=== PATIENT | female | born 1985 | race Caucasian/White ===

== ENCOUNTER 2017-07-27 09:11 | Emergency (ER) | payer OTHER ==
[~2017-07-27] VITALS: Ht 154.9 cm; Wt 110.2 kg
[~2017-07-27 09:11] MED LIST: AMOX500 PO; HYDACE5 PO; IBUP800 PO; INDO50 PO; LITH300C PO; NEOPOLHYDS AD; TRAM50 PO; [UNRECOGNIZED DRUG - OTHER]
[2017-07-27] MEDS ORDERED: Amoxicillin875 MG PO (10:10)
== END 2017-07-27 10:48 | disposition home or self-care (01) ==
LOC: ER 09:11
DX: J02.0 Streptococcal pharyngitis (principal); Z88.5 Allergy status to narcotic agent
CPT/HCPCS: 99282

== ENCOUNTER 2017-07-31 09:20 | Emergency (ER) | payer OTHER ==
[~2017-07-31] VITALS: Ht 157.5 cm; Wt 108.9 kg
[~2017-07-31 09:20] MED LIST changes: +Amoxicillin875 MG PO
[2017-07-31] MEDS ORDERED: Zofran Odt4 MG SL (10:06)
== END 2017-07-31 10:14 | disposition home or self-care (01) ==
LOC: ER 09:20
DX: J06.9 Acute upper respiratory infection, unspecified (principal); F41.9 Anxiety disorder, unspecified; F31.9 Bipolar disorder, unspecified; Z87.891 Personal history of nicotine dependence; Z88.5 Allergy status to narcotic agent
CPT/HCPCS: 99282

== ENCOUNTER 2018-03-07 16:50 | Emergency (ER) | payer OTHER ==
[~2018-03-07] VITALS: Ht 154.9 cm; Wt 116.1 kg
[~2018-03-07 16:50] MED LIST changes: +Zofran Odt4 MG SL
== END 2018-03-07 18:47 | disposition home or self-care (01) ==
LOC: ER 16:50
DX: S93.401A Sprain of unspecified ligament of right ankle, initial encounter (principal); S63.602A Unspecified sprain of left thumb, initial encounter; V49.40XA Driver injured in collision with unspecified motor vehicles in traffic accident, initial encounter; F41.9 Anxiety disorder, unspecified; F31.9 Bipolar disorder, unspecified; Z88.5 Allergy status to narcotic agent; F17.200 Nicotine dependence, unspecified, uncomplicated
CPT/HCPCS: 73130; 73590; 73610; 99284-25

== ENCOUNTER → 2020-07-20 | Outpatient (CLI) | payer BC | LOC: LAB SHORT 09:10 → LAB 09:10 | DX: N39.0 Urinary tract infection, site not specified (principal) | CPT/HCPCS: 87086 ==

== ENCOUNTER 2021-01-12 19:07 | Emergency (ER) | payer BC ==
[~2021-01-12] VITALS: Ht 154.9 cm; Wt 112.5 kg
== END 2021-01-12 20:54 | disposition home or self-care (01) ==
LOC: ER 19:07
DX: S83.91XA Sprain of unspecified site of right knee, initial encounter (principal); W01.0XXA Fall on same level from slipping, tripping and stumbling without subsequent striking against object, initial encounter; Y92.832 Beach as the place of occurrence of the external cause; Z88.5 Allergy status to narcotic agent; Z87.891 Personal history of nicotine dependence
CPT/HCPCS: 0031A; 29505; 73562-RT; 91303; 99283-25; A9270